=== PATIENT | female | born 1945 | race Hispanic/Latino ===

== ENCOUNTER 2017-10-26 06:16 | Day surgery (SDC) | payer OTHER ==
[2017-10-22 10:12] VITALS: BP 135/59
[2017-10-22 10:30] LABS: EOSINOPHILS % (AUTO) 1.2 % (0.0-8.0); HEMATOCRIT 43.3 % (36-48); LYMPHOCYTES % (AUTO) 35.4 % (21.0-51.0); MEAN CORPUSCULAR HEMOGLOBIN 30.3 pg (27.0-33.0); MEAN CORPUSCULAR HGB CONC 34.3 g/dL (32.0-36.0); MEAN CORPUSCULAR VOLUME 88.4 fL (79-99); MONOCYTES % (AUTO) 6.7 % (3.0-13.0); NEUTROPHILS % (AUTO) 55.7 % (40.0-77.0); NUCLEATED RED BLOOD CELLS 0.1 % (0.0-0.19); PLATELET COUNT (AUTO) 308 K/uL (130-400); RED CELL DISTRIBUTION WIDTH 13.6 % (11.0-15.5); WHITE BLOOD COUNT (AUTO) 5.1 K/uL (4.8-10.8)
[2017-10-22 10:36] LABS: CREATININE 0.7 mg/dL (0.5-1.5); POTASSIUM 3.9 mmol/L (3.5-5.1)
[2017-10-22 10:48] LABS: APPEARANCE,URINE Clear (CLEAR); BILIRUBIN,URINE Negative (NEGATIVE); COLOR,URINE Yellow (YELLOW); GLUCOSE, URINE (UA) Negative (NEGATIVE); KETONES,URINE Negative (NEGATIVE); LEUKOCYTE ESTERASE ,URINE Trace (NEGATIVE); NITRATE,URINE Negative (NEGATIVE); OCCULT BLOOD,URINE Negative (NEGATIVE); PH,URINE 8.5 (5.0-8.0); PROTEIN,URINE Negative (NEGATIVE); UROBILINOGEN,URINE 0.2 mg/dL (0.2-1.0)
[2017-10-22 11:13] LABS: BACTERIA,URINE Rare /HPF (None Seen); WBC,URINE 0-1 /HPF (0-1)
[2017-10-26] VITALS (26 sets, daily range): BP systolic 91–138; BP diastolic 44–85
[~2017-10-26] VITALS: Ht 153.7 cm; Wt 57.9 kg
[~2017-10-26 06:16] MED LIST: CYCL30DR OU; LATA2.5D2 OU
[2017-10-26] MEDS ORDERED: HEPARIN SODIUM 1000UNIT/ML 10ML VIAL ONE (06:32)
[2017-10-26] MEDS ORDERED: LACTATED RINGERS 1000ML 1,000 ML IV ONE (06:52)
[2017-10-26] MEDS ORDERED: PROPOFOL 10 MG/ML 20ML VIAL IV ONE (07:56)
[2017-10-26] MEDS ORDERED: FENTANYL CITRATE PF 50 MCG/1 ML 5ML AMP IV ONE (07:56)
[2017-10-26] MEDS ORDERED: MIDAZOLAM HCL 1 MG/ML 2ML VIAL ONE (07:56)
[2017-10-26] MEDS ORDERED: ONDANSETRON HCL 4 MG/2 ML VIAL ONE (08:23)
[2017-10-26] MEDS ORDERED: LIDOCAINE PF 2% 5ML ABBOJECT ONE (08:23)
[2017-10-26] MEDS ORDERED: ROCURONIUM BROMIDE 10MG/1ML 5ML VL ONE (08:23)
[2017-10-26] MEDS ORDERED: SUCCINYLCHOLINE 200MG/10ML SYR ONE (08:24)
[2017-10-26] MEDS ORDERED: DEXAMETHASONE SOD PHOSPHATE 10MG/ML 1ML VIAL ONE (08:24)
[2017-10-26] MEDS ORDERED: GLYCOPYRROLATE 0.2 MG/ML 5 ML VIAL ONE (08:25)
[2017-10-26] MEDS ORDERED: PHENYLEPHRINE HCL 10 MG/ML 1ML VIAL IV ONE (08:25)
[2017-10-26] MEDS ORDERED: MEPERIDINE-PF 50 MG/ML SYG ONE (09:20)
== END 2017-10-26 12:00 | disposition home or self-care (01) ==
LOC: DAH 06:16
PROVIDERS: ATTEND Surgery
DX: K81.1 Chronic cholecystitis (principal); K82.8 Other specified diseases of gallbladder; E78.2 Mixed hyperlipidemia; M76.32 Iliotibial band syndrome, left leg; M85.88 Other specified disorders of bone density and structure, other site; E66.3 Overweight; Z68.24 Body mass index [BMI] 24.0-24.9, adult; E55.9 Vitamin D deficiency, unspecified; Z90.710 Acquired absence of both cervix and uterus; Z88.8 Allergy status to other drugs, medicaments and biological substances; Z80.8 Family history of malignant neoplasm of other organs or systems; Z82.49 Family history of ischemic heart disease and other diseases of the circulatory system; Z82.5 Family history of asthma and other chronic lower respiratory diseases; Z83.42 Family history of familial hypercholesterolemia
CPT/HCPCS: 36415; 47562; 80048; 81001; 85025; 88304; A4450; A4600; A4649; C1769 ×4; J0330; J1100; J1644; J2001; J2175; J2250; J2370; J2405; J2704; J3010; J3490 ×2; J7030; J7120

== ENCOUNTER 2017-10-31 13:38 | Emergency (ER) | payer OTHER ==
[2017-10-31] MEDS ORDERED: MORPHINE SULFATE 4 MG/1ML SYG ONE (14:08)
[2017-10-31] MEDS ORDERED: ONDANSETRON HCL 4 MG/2 ML VIAL ONE (14:08)
[2017-10-31] MEDS ORDERED: FAMOTIDINE/PF 20 MG/2 ML VIAL IV ONE (14:09)
[2017-10-31] MEDS ORDERED: SODIUM CHLORIDE 0.9% 1000ML 1,000 ML IV ONE (14:20)
[2017-10-31 14:25] LABS: BASOPHILS % (AUTO) 0.5 % (0.0-5.0); EOSINOPHILS % (AUTO) 0.4 % (0.0-8.0); LYMPHOCYTES % (AUTO) 20.3 % (21.0-51.0); MEAN CORPUSCULAR HEMOGLOBIN 30.8 pg (27.0-33.0); MEAN CORPUSCULAR HGB CONC 34.9 g/dL (32.0-36.0); MEAN CORPUSCULAR VOLUME 88.2 fL (79-99); MONOCYTES % (AUTO) 5.3 % (3.0-13.0); NEUTROPHILS % (AUTO) 73.5 % (40.0-77.0); PLATELET COUNT (AUTO) 335 K/uL (130-400); RED BLOOD CELL COUNT(AUTO) 4.65 MIL/uL (4.00-5.50); RED CELL DISTRIBUTION WIDTH 13.5 % (11.0-15.5); WHITE BLOOD COUNT (AUTO) 8.4 K/uL (4.8-10.8)
[2017-10-31] MEDS ORDERED: IOPAMIDOL-370 75 ML VIAL IV ONE (14:29)
[2017-10-31 14:35] LABS: CREATININE 0.7 mg/dL (0.5-1.5); POTASSIUM 3.9 mmol/L (3.5-5.1)
[2017-10-31 14:36] LABS: INR 0.94 (0.85-1.15); PARTIAL THROMBOPLASTIN TIME 22.4 SEC (26.3-35.5); PROTHROMBIN TIME 9.9 SEC (9.6-11.6)
[2017-10-31 14:40] LABS: ALBUMIN 3.6 g/dL (3.5-5.0); BILIRUBIN,TOTAL 0.5 mg/dL (0.2-1.0); TOTAL PROTEIN, SERUM 7.3 g/dL (6.0-8.3)
[2017-10-31 15:44] LABS: APPEARANCE,URINE Clear (CLEAR); BILIRUBIN,URINE Negative (NEGATIVE); COLOR,URINE Yellow (YELLOW); GLUCOSE, URINE (UA) Negative (NEGATIVE); KETONES,URINE Negative (NEGATIVE); LEUKOCYTE ESTERASE ,URINE Trace (NEGATIVE); NITRATE,URINE Negative (NEGATIVE); OCCULT BLOOD,URINE Negative (NEGATIVE); PH,URINE >=9.0 (5.0-8.0); PROTEIN,URINE Negative (NEGATIVE)
[2017-10-31 15:56] LABS: BACTERIA,URINE None Seen /HPF (None Seen); RBC,URINE None Seen /HPF (0-1); WBC,URINE 0-1 /HPF (0-1)
[2017-10-31 15:57] LABS: SQUAMOUS EPITHELIAL CELL,UR 0-2 /LPF (0-2)
== END 2017-10-31 17:31 | disposition home or self-care (01) ==
LOC: EDH 13:38
DX: G89.18 Other acute postprocedural pain (principal); R42 Dizziness and giddiness; K21.9 Gastro-esophageal reflux disease without esophagitis; R79.89 Other specified abnormal findings of blood chemistry; M19.90 Unspecified osteoarthritis, unspecified site
CPT/HCPCS: 36415; 71045; 74177; 80053; 81001; 83690; 84484; 85025; 85610; 85730; 93005; 96361; 96374; 96375; 99285; J2270; J2405; J3490; J7030; Q9967

== ENCOUNTER → 2019-01-20 | Outpatient (CLI) | payer OTHER | END | disposition home or self-care (01) | LOC: RAH 07:36 | PROVIDERS: ATTEND Internal Medicine Gastroenterology | DX: R10.13 Epigastric pain (principal) | CPT/HCPCS: 76700 ==

== ENCOUNTER → 2021-04-23 | Outpatient (CLI) | payer MEDICARE ==
[~2021-04-23] MED LIST changes: +LATA2.5D14 OU; -LATA2.5D2 OU
== END | disposition home or self-care (01) ==
LOC: RAH 10:42
PROVIDERS: ATTEND Internal Medicine
DX: M19.071 Primary osteoarthritis, right ankle and foot (principal); M19.072 Primary osteoarthritis, left ankle and foot; M85.80 Other specified disorders of bone density and structure, unspecified site; M50.322 Other cervical disc degeneration at C5-C6 level; M48.02 Spinal stenosis, cervical region; M47.816 Spondylosis without myelopathy or radiculopathy, lumbar region
CPT/HCPCS: 72040; 72100; 73630

== ENCOUNTER → 2023-04-14 | Outpatient (CLI) | payer OTHER | END | disposition home or self-care (01) | LOC: OIH 15:27 | PROVIDERS: ATTEND Internal Medicine Cardiovascular Disease | DX: Z13.6 Encounter for screening for cardiovascular disorders (principal) | CPT/HCPCS: 75571 ==

== ENCOUNTER → 2023-05-18 | Outpatient (CLI) | payer MEDICARE | END | disposition home or self-care (01) | LOC: SHCH 07:57 | PROVIDERS: ATTEND Internal Medicine Cardiovascular Disease | DX: I71.40 Abdominal aortic aneurysm, without rupture, unspecified (principal) | CPT/HCPCS: 93978 ==

== ENCOUNTER → 2023-05-19 | Outpatient (CLI) | payer MEDICARE | END | disposition home or self-care (01) | LOC: RAH 10:00 | PROVIDERS: ATTEND Pediatrics | DX: K21.9 Gastro-esophageal reflux disease without esophagitis (principal); R14.0 Abdominal distension (gaseous); K31.84 Gastroparesis; Z90.49 Acquired absence of other specified parts of digestive tract | CPT/HCPCS: 74240 ==

== ENCOUNTER 2024-03-02 06:24 | Day surgery (SDC) | payer MEDICARE ==
[2024-03-02] VITALS (11 sets, daily range): BP systolic 81–135; BP diastolic 43–58; PULSE 57–75; RESP 16
[~2024-03-02] VITALS: Ht 149.9 cm; Wt 42.2 kg
[~2024-03-02 06:24] MED LIST changes: +AMIT10TA6 PO; -CYCL30DR OU; +DOCU-116 PO; +ESOM40CA66 PO; -LATA2.5D14 OU; +LORA10TA7 PO; +MULT-1367 PO; +ONDA-243 PO; +ROSU10TA72 PO; +SIME125C81 PO; +SUCR1ORA15 PO
[2024-03-02] MEDS: 0.9%NACL 1000ML 1,000 ML IV ONE (06:57)
[2024-03-02] MEDS ORDERED: PROPOFOL 10 MG/ML 20ML VIAL IV ONE (08:23)
[2024-03-02] MEDS ORDERED: SIMETHICONE 40 MG/0.6 ML ML ONE (08:31)
== END 2024-03-02 09:45 | disposition home or self-care (01) ==
LOC: DAH 06:24
PROVIDERS: ATTEND Surgery
DX: R12 Heartburn (principal); K29.50 Unspecified chronic gastritis without bleeding; K22.89 Other specified disease of esophagus; K31.84 Gastroparesis; Z98.0 Intestinal bypass and anastomosis status; M19.90 Unspecified osteoarthritis, unspecified site; E78.5 Hyperlipidemia, unspecified; G43.909 Migraine, unspecified, not intractable, without status migrainosus; E43 Unspecified severe protein-calorie malnutrition; F41.9 Anxiety disorder, unspecified; K21.9 Gastro-esophageal reflux disease without esophagitis; Z90.710 Acquired absence of both cervix and uterus; Z90.49 Acquired absence of other specified parts of digestive tract; Z88.8 Allergy status to other drugs, medicaments and biological substances; Z79.899 Other long term (current) drug therapy
CPT/HCPCS: 43239; J7030 ×2; J2704; A4620; A4215 ×2; A4223; A4657; A4222; A4221; A4663; A4606; J3490

== ENCOUNTER → 2024-03-15 | Outpatient (CLI) | payer MEDICARE ==
[~2024-03-15] MED LIST changes: +DIATR MEGLU/DIATRIZOATE SODIUM 30 ML BOTTLE ONE
== END | disposition home or self-care (01) ==
LOC: RAH 09:17
PROVIDERS: ATTEND Surgery
DX: K31.84 Gastroparesis (principal); K22.89 Other specified disease of esophagus; R42 Dizziness and giddiness; Z98.890 Other specified postprocedural states
CPT/HCPCS: 74240; Q9963

== ENCOUNTER → 2025-08-29 | Outpatient (CLI) | payer MEDICARE ==
[~2025-08-29] MED LIST changes: +AMIT10TA13 PO; -AMIT10TA6 PO; -DIATR MEGLU/DIATRIZOATE SODIUM 30 ML BOTTLE ONE; +IOHEXOL-350 75 ML VIAL IV ONE; -ROSU10TA72 PO; +ROSU10TA98 PO
--- NOTE | 2025-08-29 21:35 | HMCIMG ---
EXAM: CT SCAN OF THE ABDOMEN AND PELVIS WITH CONTRAST Clinical statement: Epigastric pain and left upper quadrant pain. STUDY PROTOCOL: CT radiation dose protocol was performed in accordance with the principles of ALARA. A multislice CT scan of the abdomen and pelvis was performed after administration of intravenous and oral contrast, with 7-minute delayed/excretory phase imaging. Sections were obtained from the diaphragms to the inguinal region with multiplanar reformations. Study quality is adequate without motion or streak artifact. RADIATION DOSE: CTDIvol 13.20 mGy; DLP 677.80 mGycm. CONTRAST: Intravenous and oral contrast administered. COMPARISON: CT scan of the abdomen and pelvis from 08/02/2023. FINDINGS: LUNG BASE: Visualized lung bases are clear. No focal consolidation, suspicious pulmonary nodule, or pleural effusion is identified. LIVER: Liver is normal in size and contour with homogeneous enhancement. Diffuse hepatic hypoattenuation is present, consistent with fatty infiltration (hepatic steatosis). No focal hepatic lesion or biliary ductal dilatation is seen. GALL BLADDER: Gall bladder is surgically absent. No abnormal fluid collection is seen in the gallbladder fossa. PANCREAS: Pancreas is normal in size, contour, and enhancement. No pancreatic ductal dilatation, peripancreatic fat stranding, or fluid collection is identified. SPLEEN: Spleen is normal in size and shows homogeneous enhancement without focal lesion. ADRENAL GLANDS: Adrenal glands are normal in size and morphology without discrete nodules. KIDNEYS: Kidneys enhance symmetrically without hydronephrosis, nephrolithiasis, or renal mass. Visualized ureters are normal in caliber on excretory phase images without intraluminal filling defect. STOMACH AND SMALL BOWEL (GIT /T/ PERITONEAL CAVITY): Stomach is decompressed to mildly distended without focal wall thickening. Small bowel loops are normal in caliber and wall thickness without obstruction or abnormal mural enhancement; previously described fluid-filled ileal loop dilatation has resolved. No CT evidence of acute appendicitis. No free intraperitoneal air or free fluid is seen. Mesenteric fat and omentum are unremarkable. COLON AND APPENDIX: Colon is normal in caliber without wall thickening or pericolic inflammatory change. Scattered diverticula are present in the sigmoid colon, consistent with sigmoid diverticulosis, without CT evidence of diverticulitis. Appendix is visualized and normal in caliber without periappendiceal stranding. LYMPHNODES: No pathologic abdominal or pelvic lymphadenopathy is identified. VASCULATURE (RETROPERITONEUM): Abdominal aorta and its major branches are normal in course and caliber without aneurysm or dissection. Portal vein, hepatic veins, and IVC are patent. PELVIC ORGANS (REPRODUCTIVE ORGANS / PELVIS): Urinary bladder is appropriately distended with smooth contour and no wall thickening or intraluminal filling defect. Uterus is surgically absent. No adnexal mass or pelvic fluid collection is identified. MUSCULOSKELETAL: Mild degenerative changes are present in the visualized spine. No acute osseous abnormality or suspicious osseous lesion is seen. OTHER: A small fat-containing umbilical hernia is present without bowel involvement. Visualized abdominal wall and paraspinal soft tissues are otherwise unremarkable. Osteopenia of the visualized osseous structures is noted. IMPRESSION: * No CT evidence of acute intra-abdominal or pelvic pathology to account for the reported epigastric and left upper quadrant pain. * Diffuse hepatic steatosis, consistent with fatty liver disease in the appropriate clinical context. Correlate with liver function tests and metabolic risk factors, and consider noninvasive fibrosis assessment per hepatology guidelines if not already performed. * Sigmoid diverticulosis without CT evidence of diverticulitis. * Small fat-containing umbilical hernia without bowel compromise. * Osteopenia with mild degenerative changes of the visualized spine, without acute osseous abnormality. * Compared with the CT abdomen and pelvis from 08/02/2023, there is interval resolution of the previously seen fluid-filled dilatation of ileal loops, with otherwise stable appearance of hepatic steatosis, postoperative changes, and other chronic findings. /[place]
== END | disposition home or self-care (01) ==
LOC: RAH 10:21
PROVIDERS: ATTEND Internal Medicine Gastroenterology
DX: K76.0 Fatty (change of) liver, not elsewhere classified (principal); K42.9 Umbilical hernia without obstruction or gangrene; K57.30 Diverticulosis of large intestine without perforation or abscess without bleeding; M85.88 Other specified disorders of bone density and structure, other site; R10.13 Epigastric pain; R10.12 Left upper quadrant pain; M47.817 Spondylosis without myelopathy or radiculopathy, lumbosacral region; Z90.710 Acquired absence of both cervix and uterus; Z90.49 Acquired absence of other specified parts of digestive tract
CPT/HCPCS: 74177; Q9967